=== PATIENT | male | born 1975 | race Hispanic/Latino ===

== ENCOUNTER 2017-12-11 18:49 | Emergency (ER) | payer SELFPAY ==
[2017-12-11] MEDS ORDERED: OCTYL 2-CYANOACRYLATE 1 EACH TP ONE (19:29)
== END 2017-12-11 19:48 | disposition home or self-care (01) ==
LOC: EDH 18:49
DX: S01.111A Laceration without foreign body of right eyelid and periocular area, initial encounter (principal); Z72.0 Tobacco use; Z98.890 Other specified postprocedural states; W22.8XXA Striking against or struck by other objects, initial encounter; Y93.89 Activity, other specified; Y92.89 Other specified places as the place of occurrence of the external cause; Y99.8 Other external cause status
CPT/HCPCS: 12052